=== PATIENT | female | born 1980 | race Caucasian/White ===

== ENCOUNTER 2016-12-16 21:37 | Emergency (ER) | payer MEDICARE ==
[~2016-12-16] VITALS: Ht 167.6 cm; Wt 85.0 kg
[2016-12-16 21:56] VITALS: BP 116/74; PULSE 76; RESP 17; TEMP 98; O2SAT 98
[2016-12-16 22:13] VITALS: BP_SYST 106; BP_SYST 116; BP_DIAS 70; BP_DIAS 71; PULSE 76; RESP 18
[2016-12-16 22:24] LABS: AUTOMATED NEUTROPHIL # 3.8 TH/MM3 (1.8-7.7); BASOPHIL # 0.2 TH/MM3 (0-0.2); BASOPHIL % 2.3 % (0.0-2.0); EOSINOPHIL # 0.5 TH/MM3 (0-0.4); EOSINOPHIL % 6.7 % (0.0-4.0); HEMATOCRIT 44.5 % (35.0-46.0); HEMO FLAGS DIFF FINAL; LYMPH % 33.3 % (9.0-44.0); LYMPHOCYTE # 2.5 TH/MM3 (1.0-4.8); MEAN CELL VOLUME 98.5 FL (80.0-100.0); MEAN CORPUSCULAR HEMOGLOBIN 33.1 PG (27.0-34.0); MEAN CORPUSCULAR HGB CONC 33.6 % (32.0-36.0); MONO % 6.6 % (0.0-8.0); NEUT % 51.1 % (16.0-70.0); PLATELET COUNT 214 TH/MM3 (150-450); RED BLOOD COUNT 4.52 MIL/MM3 (4.00-5.30); RED CELL DISTRIBUTION WIDTH 12.2 % (11.6-17.2); WHITE BLOOD COUNT 7.5 TH/MM3 (4.0-11.0)
--- NOTE | 2016-12-16 22:26 | PD ---
HPI Chief Complaint: Chest Pain Time Seen by Provider: 21:59 Travel History International Travel<30 days: No Contact w/Intl Traveler<30days: No Traveled to known affect area: No History of Present Illness HPI pATIENT IS A 36-YEAR-OLD FEMALE WITH A HISTORY OF hiv on antiretroviral therapy last CD4 count was 400 last viral load was undetectable presents emergency department with nonspecific chest pain without radiation and an episode of dizziness. Patient states this happened earlier this evening and is now nearly resolved but she is left with some mild headache. She does have a history of endocarditis in 2013. She denies any fevers denies any shortness of breath bowel pain nausea or vomiting. Patient states symptoms were fairly alarming in severity but now feels a lot better. She is happy and content at this time. Denies rash denies PFSH Past Medical History Cardiovascular Problems: Yes Cerebrovascular Accident: Yes ?: Not LMP: "at the begining of November" Past Surgical History Narrative Surgical Tonsillectomy Family History Narrative Family History Noncontributory Social History Alcohol Use: No Tobacco Use: No Substance Use: No Allergies-Medications (Allergen,Severity, Reaction): Coded Allergies: Bactrim (Verified Allergy, Severe, Rash, 12/16/16) Imodium (Verified Allergy, Severe, Anaphylaxis, 12/16/16) Reported Meds & Prescriptions Reported Meds & Active Scripts Active Reported Fluticasone Nasal [place] 50 Mcg/Act Naspr 50 Mcg EACH NARE BID 50 mcg/spray Escitalopram (Escitalopram Oxalate) 10 Mg Tab 10 Mg PO DAILY Alprazolam 0.5 Mg Tab 0.5 Mg PO BID PRN Montelukast (Montelukast Sodium) 5 Mg Chew 5 Mg CHEW HS Tivicay (Dolutegravir Sodium) 50 Mg Tab 50 Mg PO DAILY Descovy (Emtricitabine-Tenofovir Alafenamide) 200-25 mg Tab 1 Tab PO DAILY Vitamin B-12 (Cyanocobalamin) 500 Mcg Tab 1,000 Mcg PO DAILY Vitamin D (Cholecalciferol) 1,000 Unit Tab 1,000 Units PO DAILY Dicyclomine (Dicyclomine HCl) 10 Mg Cap 10 Mg PO QID Oyster Shell Calcium 500/200 (Calcium Carbonate-Vitamin D) 500-200 Mg-Unit Tab 1 Tab PO TID Carvedilol 25 Mg Tab 25 Mg PO BID Magnesium Oxide 500 Mg Tab 500 Mg PO BID Physical Exam Narrative GENERAL: Developed well-nourished, comfortable appearance in no obvious distress. SKIN: No rash no wound no splitter hemorrhages no Osler nodes. HEAD: Atraumatic. Normocephalic. EYES: Pupils equal and round. No scleral icterus. No injection or drainage. ENT: No nasal bleeding or discharge. Mucous membranes pink and moist. NECK: Trachea midline. No JVD. CARDIOVASCULAR: Regular rate and rhythm. No murmur appreciated. 2+ bilateral equal pulses in all 4 extremity's. RESPIRATORY: No accessory muscle use. Clear to auscultation. Breath sounds equal bilaterally. GASTROINTESTINAL: Abdomen soft, non-tender, nondistended. Hepatic and splenic margins not palpable. MUSCULOSKELETAL: No obvious deformities. No clubbing. No cyanosis. No edema. NEUROLOGICAL: Awake and alert. No obvious cranial nerve deficits. Motor grossly within normal limits. Normal speech. PSYCHIATRIC: Appropriate mood and affect; insight and judgment normal. Polite and respectful, appears to be in high spirits. Data Data Last Documented VS Vital Signs Date Time Temp Pulse Resp B/P Pulse Ox O2 Delivery O2 Flow Rate FiO2 12/16/16 22:13 Room Air 12/16/16 22:13 76 18 116/71 106/70 12/16/16 21:56 98.0 98 Orders Ckmb (Isoenzyme) Profile (12/16/16 22:08) Complete Blood Count With Diff (12/16/16 22:08) Comprehensive Metabolic Panel (12/16/16 22:08) Magnesium (Mg) (12/16/16 22:08) Prothrombin Time / Inr (Pt) (12/16/16 22:08) Act Partial Throm Time (Ptt) (12/16/16 22:08) Troponin I (12/16/16 22:08) Ecg Monitoring (12/16/16 22:08) Bilateral Bp Monitoring (12/16/16 22:08) Iv Access Insert/Monitor (12/16/16 22:08) Oximetry (12/16/16 22:08) Oxygen Administration (12/16/16 22:08) Chest, Pa & Lat (12/16/16 22:08) Labs Laboratory Tests Test 12/16/16 22:10 White Blood Count 7.5 TH/MM3 Red Blood Count 4.52 MIL/MM3 Hemoglobin 14.9 GM/DL Hematocrit 44.5 % Mean Corpuscular Volume 98.5 FL Mean Corpuscular Hemoglobin 33.1 PG Mean Corpuscular Hemoglobin 33.6 % Concent Red Cell Distribution Width 12.2 % Platelet Count 214 TH/MM3 Mean Platelet Volume 10.1 FL Neutrophils (%) (Auto) 51.1 % Lymphocytes (%) (Auto) 33.3 % Monocytes (%) (Auto) 6.6 % Eosinophils (%) (Auto) 6.7 % Basophils (%) (Auto) 2.3 % Neutrophils # (Auto) 3.8 TH/MM3 Lymphocytes # (Auto) 2.5 TH/MM3 Monocytes # (Auto) 0.5 TH/MM3 Eosinophils # (Auto) 0.5 TH/MM3 Basophils # (Auto) 0.2 TH/MM3 CBC Comment DIFF FINAL Differential Comment Prothrombin Time 9.5 SEC Prothromb Time International 0.9 RATIO Ratio Activated Partial 27.1 SEC Thromboplast Time Sodium Level 139 MEQ/L Potassium Level 3.8 MEQ/L Chloride Level 104 MEQ/L Carbon Dioxide Level 27.6 MEQ/L Anion Gap 7 MEQ/L Blood Urea Nitrogen 19 MG/DL Creatinine 1.60 MG/DL Estimat Glomerular Filtration 36 ML/MIN Rate Random Glucose 93 MG/DL Calcium Level 8.3 MG/DL Magnesium Level 2.3 MG/DL Total Bilirubin 0.2 MG/DL Aspartate Amino Transf 20 U/L (AST/SGOT) Alanine Aminotransferase 38 U/L (ALT/SGPT) Alkaline Phosphatase 144 U/L Total Creatine Kinase 71 U/L Troponin I LESS THAN 0.02 NG/ML Total Protein 7.7 GM/DL Albumin 3.4 GM/DL [facility] Medical Decision Making Medical Screen Exam Complete: Yes Emergency Medical Condition: Yes Interpretation(s) EKG shows normal sinus rhythm with normal axis normal R-wave progression. No concerning ST-T changes. Intervals within normal limits. This normal EKG. Differential Diagnosis ACS unlikely, NE likely, pericarditis unlikely, vasovagal near-syncope, endocarditis seems very unlikely. Narrative Course Patient was roomed in the emergency department, she does not have any physical exam findings to suggest endocarditis at this time, no heart murmur no fever no splinter hemorrhages no Osler nodes. She appears well she's been laughing and joking with her family in the room. Her initial workup clearing EKG chest x- ray troponin and basic labs are normal. I discussed with the patient the differential diagnosis does include vasovagal reaction. Unable to determine with any accuracy of this is the reason why she had her symptoms tonight however she does feel well. I recommend that she follow up with her primary care physician and discussed return to ED criteria. She stable for discharge at this time. Diagnosis Primary Impression: Chest pain with low risk of acute coronary syndrome Additional Instructions: Recommend calling her primary care physician this week for follow-up appointment. Disposition: 01 DISCHARGE HOME Condition: Stable Domingo Herrera MD December 16, 2016 22:26
[2016-12-16 22:32] LABS: CHLORIDE 104 MEQ/L (98-107); POTASSIUM 3.8 MEQ/L (3.5-5.1); SODIUM (NA) 139 MEQ/L (136-145)
[2016-12-16 22:37] LABS: ANION GAP 7 MEQ/L (5-15); BICARBONATE 27.6 MEQ/L (21.0-32.0); BLOOD UREA NITROGEN 19 MG/DL (7-18); MAGNESIUM 2.3 MG/DL (1.5-2.5)
[2016-12-16 22:40] LABS: ALT (GPT) 38 U/L (10-53); AST (GOT) 20 U/L (15-37); GLOMERULAR FILTRATION RATE 36 ML/MIN (>89)
[2016-12-16 22:42] LABS: TOTAL BILIRUBIN ADULT 0.2 MG/DL (0.2-1.0)
[2016-12-16 22:43] LABS: ALKALINE PHOSPHATASE 144 U/L (45-117)
--- NOTE | 2016-12-16 22:49 | RADHPO ---
EXAM DATE/TIME: 12/16/2016 22:26 [place] COMPARISON: No previous studies available for comparison. INDICATIONS : Weakness. Chest discomfort. MEDICAL HISTORY : None. SURGICAL HISTORY : None. ENCOUNTER: Initial ACUITY: 1 day PAIN SCORE: 5/10 LOCATION: Bilateral chest FINDINGS: PA and lateral views of the chest demonstrate the lungs to be symmetrically aerated without evidence of mass, infiltrate or effusion. The cardiomediastinal contours are unremarkable. Osseous structure s are intact. CONCLUSION: No acute disease. Everardo Beach MD FACR on December 16, 2016 at 22:47 Board Certified Radiologist. This report was verified electronically.
[2016-12-16] MEDS ORDERED: MONT5CHW5 CHEW (22:56)
[2016-12-16] MEDS ORDERED: ESCI10TA PO (22:56)
[2016-12-16] MEDS ORDERED: FLUT50SP EACH NARE (22:56)
[2016-12-16] MEDS ORDERED: CARV25TA PO (22:56)
[2016-12-16] MEDS ORDERED: [UNRECOGNIZED DRUG - CODE] PO (22:56)
[2016-12-16] MEDS ORDERED: DOLU1TAB PO (22:56)
[2016-12-16] MEDS ORDERED: EMTR1TAB4 PO (22:56)
[2016-12-16] MEDS ORDERED: MAGN500T2 PO (22:56)
[2016-12-16] MEDS ORDERED: VITA100064 PO (22:56)
[2016-12-16] MEDS ORDERED: VITA500T4 PO (22:56)
[2016-12-16] MEDS ORDERED: DICY10CA12 PO (22:56)
[2016-12-16] MEDS ORDERED: ALPR0.5T3 PO (22:56)
[2016-12-16 22:57] LABS: APTT (PATIENT) 27.1 SEC (24.3-30.1); INTERNATIONAL NORMALIZED RATIO 0.9 RATIO; PROTHROMBIN TIME - PATIENT 9.5 SEC (9.8-11.6)
[2016-12-16 23:24] LABS: CREATINE KINASE 71 U/L (26-192)
--- NOTE | 2016-12-17 15:56 | EKG ---
Date Performed: 12/16/2016 Time Performed: 21:45:16 PTAGE: 36 years EKG: Sinus rhythm Normal ECG NO PREVIOUS TRACING DOCTOR: Mauro Gore Interpretating Date/Time 12/17/2016 15:55:30
== END 2016-12-16 23:57 | disposition home or self-care (01) ==
LOC: PHED 21:37
DX: R07.9 Chest pain, unspecified (principal); Z86.73 Personal history of transient ischemic attack (TIA), and cerebral infarction without residual deficits; Z87.898 Personal history of other specified conditions; B20 Human immunodeficiency virus [HIV] disease
CPT/HCPCS: 71020; 80053; 82550; 83735; 84484; 85025; 85610; 85730; 93005; 99284

== ENCOUNTER 2017-06-28 20:12 | Emergency (ER) | payer MEDICARE, OTHER ==
[~2017-06-28] VITALS: Ht 167.6 cm; Wt 80.0 kg
[~2017-06-28 20:12] MED LIST: ALPR0.5T3 PO; CARV25TA PO; DICY10CA12 PO; DOLU1TAB PO; EMTR1TAB4 PO; ESCI10TA PO; FLUT50SP EACH NARE; MAGN500T2 PO; MONT5CHW5 CHEW; VITA100064 PO; VITA500T4 PO; [UNRECOGNIZED DRUG - CODE] PO
[2017-06-28 20:43] VITALS: BP 122/75; PULSE 88; RESP 17; TEMP 98.1; O2SAT 97
[2017-06-28 22:29] LABS: AUTOMATED NEUTROPHIL # 4.4 TH/MM3 (1.8-7.7); BASOPHIL % 0.5 % (0.0-2.0); EOSINOPHIL # 0.1 TH/MM3 (0-0.4); EOSINOPHIL % 1.7 % (0.0-4.0); HEMATOCRIT 42.7 % (35.0-46.0); HEMO FLAGS DIFF FINAL; LYMPH % 25.7 % (9.0-44.0); LYMPHOCYTE # 1.8 TH/MM3 (1.0-4.8); MEAN CELL VOLUME 99.7 FL (80.0-100.0); MEAN CORPUSCULAR HEMOGLOBIN 33.8 PG (27.0-34.0); MEAN CORPUSCULAR HGB CONC 33.9 % (32.0-36.0); MONO % 7.1 % (0.0-8.0); PLATELET COUNT 202 TH/MM3 (150-450); RED BLOOD COUNT 4.29 MIL/MM3 (4.00-5.30); RED CELL DISTRIBUTION WIDTH 12.9 % (11.6-17.2); WHITE BLOOD COUNT 6.8 TH/MM3 (4.0-11.0)
[2017-06-28 22:44] LABS: ANION GAP 8 MEQ/L (5-15); AST (GOT) 17 U/L (15-37); BICARBONATE 25.8 MEQ/L (21.0-32.0); BLOOD UREA NITROGEN 26 MG/DL (7-18); CHLORIDE 99 MEQ/L (98-107); GLOMERULAR FILTRATION RATE 35 ML/MIN (>89); POTASSIUM 3.7 MEQ/L (3.5-5.1); SODIUM (NA) 133 MEQ/L (136-145)
[2017-06-28 22:45] LABS: ALT (GPT) 33 U/L (10-53)
[2017-06-28 22:47] LABS: ACETAMINOPHEN 4.3 MCG/ML (10.0-30.0); ALCOHOL LESS THAN 3 MG/DL (0-5); ALKALINE PHOSPHATASE 116 U/L (45-117); TOTAL BILIRUBIN ADULT 0.3 MG/DL (0.2-1.0)
[2017-06-28] MEDS ORDERED: HYDR-3583 PO (23:26)
--- NOTE | 2017-06-28 23:32 | PD ---
HPI Chief Complaint: Psychiatric Symptoms Time Seen by Provider: 23:11 Travel History International Travel<30 days: No Contact w/Intl Traveler<30days: No Traveled to known affect area: No History of Present Illness HPI 36yo F with PMH of HIV with CD 4 count 457, peripheral neuropathy, CKD stage III presents to the ED under Patel Act for suicidal ideations. Said she just has these thoughts coming in. Denies any fever, chest pain, sob, n/v, abdominal pain, focal weakness or numbness. PFSH Past Medical History ADHD: Yes Anxiety: Yes Cardiomyopathy: Yes (endocarditis) Cardiovascular Problems: Yes (ENDOCARDITIS, NEUTROPENIA) Cerebrovascular Accident: Yes ("brain bleeding") Developmental Delay: Yes Headaches: Yes Immune Disorder: Yes (HIV AIDS) Musculoskeletal: Yes (OSTEOMYELITIS, ) Neurologic: Yes (INTRACRANIAL HEMORRHAGE) Pneumonia: Yes (GBS) Renal Failure: Yes (ACUTE KIDNEY INJURY) ?: Not Past Surgical History Abdominal Surgery: Yes (c-sect) Section: Yes Tonsillectomy: Yes (t and a) Social History Alcohol Use: No Tobacco Use: Yes Substance Use: No Allergies-Medications (Allergen,Severity, Reaction): Coded Allergies: loperamide (Unverified Allergy, Severe, Anaphylaxis, 06/28/17) sulfamethoxazole (Unverified Allergy, Severe, Rash, 06/28/17) trimethoprim (Unverified Allergy, Severe, Rash, 06/28/17) Reported Meds & Prescriptions Reported Meds & Active Scripts Active Reported Hydrocodone-Acetaminophen 10-325 mg Tab 1 Tab PO Q6H PRN Fluticasone Nasal [place] 50 Mcg/Act Naspr 50 Mcg EACH NARE BID 50 mcg/spray Escitalopram (Escitalopram Oxalate) 10 Mg Tab 10 Mg PO DAILY Alprazolam 0.5 Mg Tab 0.5 Mg PO BID PRN Montelukast (Montelukast Sodium) 5 Mg Chew 5 Mg CHEW HS Tivicay (Dolutegravir Sodium) 50 Mg Tab 50 Mg PO DAILY Descovy (Emtricitabine-Tenofovir Alafenamide) 200-25 mg Tab 1 Tab PO DAILY Vitamin B-12 (Cyanocobalamin) 500 Mcg Tab 1,000 Mcg PO DAILY Vitamin D3 (Cholecalciferol) 1,000 Unit Tab 1,000 Units PO DAILY Dicyclomine (Dicyclomine HCl) 10 Mg Cap 10 Mg PO QID Oyster Shell Calcium 500/200 (Calcium Carbonate-Vitamin D) 500-200 Mg-Unit Tab 1 Tab PO TID Carvedilol 25 Mg Tab 25 Mg PO BID Magnesium Oxide 500 Mg Tab 500 Mg PO BID Review of Systems Except as stated in HPI: all other systems reviewed are Neg Physical Exam Narrative GENERAL: 36yo F not in distress. SKIN: Focused skin assessment warm/dry. HEAD: Atraumatic. Normocephalic. EYES: Pupils equal and round. No scleral icterus. No injection or drainage. ENT: No nasal bleeding or discharge. Mucous membranes pink and moist. NECK: Trachea midline. No JVD. CARDIOVASCULAR: Regular rate and rhythm. No murmur appreciated. RESPIRATORY: No accessory muscle use. Clear to auscultation. Breath sounds equal bilaterally. GASTROINTESTINAL: Abdomen soft, non-tender, nondistended. MUSCULOSKELETAL: No obvious deformities. No clubbing. No cyanosis. No edema. NEUROLOGICAL: Awake and alert. No obvious cranial nerve deficits. Motor grossly within normal limits. Normal speech. Data Data Last Documented VS Vital Signs Date Time Temp Pulse Resp B/P (MAP) Pulse Ox O2 Delivery O2 Flow Rate FiO2 06/28/17 20:43 98.1 88 17 122/75 (91) 97 Orders Orders Complete Blood Count With Diff (06/28/17 21:31) Comprehensive Metabolic Panel (06/28/17 21:31) Ed Urine Pregnancytest Poc (06/28/17 21:31) Psych Screen (06/28/17 21:31) Drug Screen, Random Urine (06/28/17 21:31) Alcohol (Ethanol) (06/28/17 21:31) Salicylates (Aspirin) (06/28/17 21:31) Tylenol (Acetaminophen) (06/28/17 21:31) Labs Laboratory Tests Test 06/28/17 21:50 06/28/17 22:30 White Blood Count 6.8 TH/MM3 Red Blood Count 4.29 MIL/MM3 Hemoglobin 14.5 GM/DL Hematocrit 42.7 % Mean Corpuscular Volume 99.7 FL Mean Corpuscular Hemoglobin 33.8 PG Mean Corpuscular Hemoglobin Concent 33.9 % Red Cell Distribution Width 12.9 % Platelet Count 202 TH/MM3 Mean Platelet Volume 9.5 FL Neutrophils (%) (Auto) 65.0 % Lymphocytes (%) (Auto) 25.7 % Monocytes (%) (Auto) 7.1 % Eosinophils (%) (Auto) 1.7 % Basophils (%) (Auto) 0.5 % Neutrophils # (Auto) 4.4 TH/MM3 Lymphocytes # (Auto) 1.8 TH/MM3 Monocytes # (Auto) 0.5 TH/MM3 Eosinophils # (Auto) 0.1 TH/MM3 Basophils # (Auto) 0.0 TH/MM3 CBC Comment DIFF FINAL Differential Comment Total Protein 7.8 GM/DL Alkaline Phosphatase 116 U/L Alanine Aminotransferase (ALT/SGPT) 33 U/L Total Bilirubin 0.3 MG/DL Anion Gap 8 MEQ/L Estimat Glomerular Filtration Rate 35 ML/MIN Salicylates Level LESS THAN 1.7 MG/DL Acetaminophen Level 4.3 MCG/ML Ethyl Alcohol Level LESS THAN 3 MG/DL Urine Opiates Screen POS Urine Barbiturates Screen NEG Urine Amphetamines Screen NEG Urine Benzodiazepines Screen POS Urine Cocaine Screen NEG Urine Cannabinoids Screen NEG MDM Medical Decision Making Medical Screen Exam Complete: Yes Emergency Medical Condition: Yes Differential Diagnosis Depression vs. suicidal ideation Narrative Course 36yo F under Patel Act for suicidal ideation. Urine negative. Pt has no other complaints. Labs reviewed, no leukocytosis. H/H normal. Chemistry did not go through the results on EMR but I have the hard copy and BUN /creatinine is 26/1.65 which is at baseline. Rest of CMP is normal. Alcohol negative. Acetaminophen and salicylate negative. Utox positive opiates and benzodiazepines. Pt is medically clear for psych evaluation. Diagnosis Primary Impression: Suicidal ideation Julianna Hodge DO Jun 28, 2017 23:32
[2017-06-29 02:00] VITALS: BP 112/68; PULSE 84; RESP 16; TEMP 95; O2SAT 97
[2017-06-29 02:20] VITALS: BP 127/73; PULSE 78; RESP 17; TEMP 98.1; O2SAT 98
[2017-06-29 06:21] VITALS: BP 121/69; PULSE 79; RESP 17; TEMP 97.3; O2SAT 98
[2017-06-29 10:23] VITALS: BP 115/73; PULSE 95; RESP 16; O2SAT 100
--- NOTE | 2017-06-29 14:28 | PD ---
History of Present Illness Chief Complaint: Psychiatric Symptoms Time Seen by Provider: 14:30 Travel History International Travel<30 Days: No Contact w/Intl Traveler<30days: No Known affected area: No Legal Status Legal Status: Jorge Brown Patel Act Signed By: Viviane Patel Act Comment: Signed by [facility] Tarun Mims #[id number] History of Present Illness: 36-year-old female Jorge acted for suicidal ideation. Patient states she does have thoughts of suicide which come and go. However, she denies any suicidal or homicidal ideation, plan or intent at this time. She has no psychotic symptoms and her cognition is intact. She is verbally jose manuel for safety and she is competent to do so. This physician does note the patient is HIV- positive and this was discussed with her. Her toxicology screen is noted to be positive for opiates and benzos PFSH Past Medical History ADHD: Yes Anxiety: Yes Cardiomyopathy: Yes (endocarditis) Cardiovascular Problems: Yes (ENDOCARDITIS, NEUTROPENIA) Cerebrovascular Accident: Yes ("brain bleeding") Developmental Delay: Yes Headaches: Yes Immune Disorder: Yes (HIV AIDS) Musculoskeletal: Yes (OSTEOMYELITIS, ) Neurologic: Yes (INTRACRANIAL HEMORRHAGE) Pneumonia: Yes (GBS) Renal Failure: Yes (ACUTE KIDNEY INJURY) ?: Not Past Surgical History Abdominal Surgery: Yes (c-sect) Section: Yes Tonsillectomy: Yes (t and a) Psychiatric History Psychiatric History Hx Psychiatric Treatment: Stated that she cut herself once many years ago. Stated that Dee has made an appt on Jul 09 with a therapist for her. She does not remember the name. She stated that she sees many doctors for various things. History of Inpatient Treatment: No Guns or firearms in home: No Social History Hx Alcohol Use: No Hx Tobacco Use: Yes Substance Use Type: Benzos (Valium,Xanax) Hx of Substance Use Treatment: No Allergies-Medications (Allergen,Severity, Reaction): Coded Allergies: loperamide (Unverified Allergy, Severe, Anaphylaxis, 06/28/17) sulfamethoxazole (Unverified Allergy, Severe, Rash, 06/28/17) trimethoprim (Unverified Allergy, Severe, Rash, 06/28/17) Reported Meds & Prescriptions Reported Meds & Active Scripts Active Reported Hydrocodone-Acetaminophen 10-325 mg Tab 1 Tab PO Q6H PRN Fluticasone Nasal [place] 50 Mcg/Act Naspr 50 Mcg EACH NARE BID 50 mcg/spray Escitalopram (Escitalopram Oxalate) 10 Mg Tab 10 Mg PO DAILY Alprazolam 0.5 Mg Tab 0.5 Mg PO BID PRN Montelukast (Montelukast Sodium) 5 Mg Chew 5 Mg CHEW HS Tivicay (Dolutegravir Sodium) 50 Mg Tab 50 Mg PO DAILY Descovy (Emtricitabine-Tenofovir Alafenamide) 200-25 mg Tab 1 Tab PO DAILY Vitamin B-12 (Cyanocobalamin) 500 Mcg Tab 1,000 Mcg PO DAILY Vitamin D3 (Cholecalciferol) 1,000 Unit Tab 1,000 Units PO DAILY Dicyclomine (Dicyclomine HCl) 10 Mg Cap 10 Mg PO QID Oyster Shell Calcium 500/200 (Calcium Carbonate-Vitamin D) 500-200 Mg-Unit Tab 1 Tab PO TID Carvedilol 25 Mg Tab 25 Mg PO BID Magnesium Oxide 500 Mg Tab 500 Mg PO BID Review of Systems Except as stated in HPI: all other systems reviewed are Neg Mental Status Examination Appearance: Appropriate Consciousness: Alert Orientation: x4 Motor Activity: Normal gait Speech: Unremarkable Language: Adequate Fund of Knowledge: Adequate Attention and Concentration: Adequate Memory: Unremarkable Mood: Appropriate Affect: Appropriate Thought Process & Associations: Intact Thought Content: Appropriate Hallucination Type: None Delusion Type: None Suicidal Ideation: No Suicidal Plan: No Suicidal Intention: No Homicidal Ideation: No Homicidal Plan: No Homicidal Intention: No Insight: Adequate Judgment: Adequate [facility] Medical Decision Making Medical Record Reviewed: Yes Assessment/Plan Patient interviewed at bedside. Medical record reviewed. Case discussed with nurse Mike. Patient denies any suicidal or homicidal ideation, plan or intent at this time. She admits to a history of intermittent suicidal thinking but this does not make her appropriate under the Patel act at this time. She is verbally jose manuel for safety and she is competent to do so. She is willing to accept and return to treatment on an outpatient basis. Least restrictive alternative applies. She would like to go home and this physician does not feel she requires involuntary inpatient psychiatric hospitalization. Orders Orders Complete Blood Count With Diff (06/28/17 21:31) Comprehensive Metabolic Panel (06/28/17 21:31) Ed Urine Pregnancytest Poc (06/28/17 21:31) Psych Screen (06/28/17 21:31) Drug Screen, Random Urine (06/28/17 21:31) Alcohol (Ethanol) (06/28/17 21:31) Salicylates (Aspirin) (06/28/17 21:31) Tylenol (Acetaminophen) (06/28/17 21:31) Diet Regular Basic (06/29/17 Breakfast) Diet Regular Basic (06/29/17 Lunch) Results Vital Signs Date Time Temp Pulse Resp B/P (MAP) Pulse Ox O2 Delivery O2 Flow Rate FiO2 06/29/17 10:23 95 16 115/73 (87) 100 06/29/17 06:21 97.3 79 17 121/69 (86) 98 Room Air 06/29/17 02:20 98.1 78 17 127/73 (91) 98 Room Air 06/29/17 02:00 95.0 84 16 112/68 (83) 97 Room Air 06/28/17 20:43 98.1 88 17 122/75 (91) 97 Laboratory Tests Test 06/28/17 21:50 06/28/17 22:30 White Blood Count 6.8 Red Blood Count 4.29 Hemoglobin 14.5 Hematocrit 42.7 Mean Corpuscular Volume 99.7 Mean Corpuscular Hemoglobin 33.8 Mean Corpuscular Hemoglobin Concent 33.9 Red Cell Distribution Width 12.9 Platelet Count 202 Mean Platelet Volume 9.5 Neutrophils (%) (Auto) 65.0 Lymphocytes (%) (Auto) 25.7 Monocytes (%) (Auto) 7.1 Eosinophils (%) (Auto) 1.7 Basophils (%) (Auto) 0.5 Neutrophils # (Auto) 4.4 Lymphocytes # (Auto) 1.8 Monocytes # (Auto) 0.5 Eosinophils # (Auto) 0.1 Basophils # (Auto) 0.0 CBC Comment DIFF FINAL Differential Comment Total Protein 7.8 Alkaline Phosphatase 116 Alanine Aminotransferase (ALT/SGPT) 33 Total Bilirubin 0.3 Anion Gap 8 Estimat Glomerular Filtration Rate 35 Salicylates Level LESS THAN 1.7 Acetaminophen Level 4.3 Ethyl Alcohol Level LESS THAN 3 Urine Opiates Screen POS Urine Barbiturates Screen NEG Urine Amphetamines Screen NEG Urine Benzodiazepines Screen POS Urine Cocaine Screen NEG Urine Cannabinoids Screen NEG Diagnosis Primary Impression: Adjustment disorder with depressed mood Mauro Chisholm MD Jun 29, 2017 14:28
--- NOTE | 2017-06-29 15:19 | PD ---
Physical Exam Time Seen by Provider: 15:[address] Chisholm has evaluated the patient, lifted the Patel act and cleared the patient for discharge. Data Data Last Documented VS Vital Signs Date Time Temp Pulse Resp B/P (MAP) Pulse Ox O2 Delivery O2 Flow Rate FiO2 06/29/17 10:23 95 16 115/73 (87) 100 06/29/17 06:21 97.3 Room Air Orders Orders Complete Blood Count With Diff (06/28/17 21:31) Comprehensive Metabolic Panel (06/28/17 21:31) Ed Urine Pregnancytest Poc (06/28/17 21:31) Psych Screen (06/28/17 21:31) Drug Screen, Random Urine (06/28/17 21:31) Alcohol (Ethanol) (06/28/17 21:31) Salicylates (Aspirin) (06/28/17 21:31) Tylenol (Acetaminophen) (06/28/17 21:31) Diet Regular Basic (06/29/17 Breakfast) Diet Regular Basic (06/29/17 Lunch) Ed Discharge Order (06/29/17 15:19) Labs Laboratory Tests Test 06/28/17 21:50 06/28/17 22:30 White Blood Count 6.8 TH/MM3 Red Blood Count 4.29 MIL/MM3 Hemoglobin 14.5 GM/DL Hematocrit 42.7 % Mean Corpuscular Volume 99.7 FL Mean Corpuscular Hemoglobin 33.8 PG Mean Corpuscular Hemoglobin Concent 33.9 % Red Cell Distribution Width 12.9 % Platelet Count 202 TH/MM3 Mean Platelet Volume 9.5 FL Neutrophils (%) (Auto) 65.0 % Lymphocytes (%) (Auto) 25.7 % Monocytes (%) (Auto) 7.1 % Eosinophils (%) (Auto) 1.7 % Basophils (%) (Auto) 0.5 % Neutrophils # (Auto) 4.4 TH/MM3 Lymphocytes # (Auto) 1.8 TH/MM3 Monocytes # (Auto) 0.5 TH/MM3 Eosinophils # (Auto) 0.1 TH/MM3 Basophils # (Auto) 0.0 TH/MM3 CBC Comment DIFF FINAL Differential Comment Total Protein 7.8 GM/DL Alkaline Phosphatase 116 U/L Alanine Aminotransferase (ALT/SGPT) 33 U/L Total Bilirubin 0.3 MG/DL Anion Gap 8 MEQ/L Estimat Glomerular Filtration Rate 35 ML/MIN Salicylates Level LESS THAN 1.7 MG/DL Acetaminophen Level 4.3 MCG/ML Ethyl Alcohol Level LESS THAN 3 MG/DL Urine Opiates Screen POS Urine Barbiturates Screen NEG Urine Amphetamines Screen NEG Urine Benzodiazepines Screen POS Urine Cocaine Screen NEG Urine Cannabinoids Screen NEG MDM Supervised Visit with CATHERINE: No Narrative Course Dr. Chisholm has evaluated the patient, lifted the Patel act and cleared the patient for discharge. Patient contracts safety. Denies suicidal or homicidal ideations. Patient will be provided community resource packet to /BRITTANEY for follow-up. Has friends and family for support. Patient was medically cleared by alternate provider prior to psych screening. Patient has been evaluated by psychiatry and and is now cleared for discharge. Diagnosis Primary Impression: Adjustment disorder with depressed mood Referrals: BRITTANEY (Out patient) [facility] Primary Care Physician Psychiatrist Lisa [facility] Patient Instructions: Depression (ED), General Instructions, Mood Disorders (ED ) Additional Instruction: Contract safety to your self and others Follow-up with psychiatry Follow-up with primary care provider Follow-up with Mike Amanda Return to the emergency department immediately with worsening of symptoms Med/Other Pt SpecificInfo: No Change to Meds, No Meds Exist/No RX given Disposition: 01 DISCHARGE HOME Condition: Stable Nazia Jain Jun 29, 2017 15:19
== END 2017-06-29 16:44 | disposition home or self-care (01) ==
LOC: NEDAMB 20:12 → NEPJ 06-29 16:44
DX: R45.851 Suicidal ideations (principal); B20 Human immunodeficiency virus [HIV] disease; F43.21 Adjustment disorder with depressed mood; N18.3 Chronic kidney disease, stage 3 (moderate); Z72.0 Tobacco use; Z88.2 Allergy status to sulfonamides; Z79.899 Other long term (current) drug therapy
CPT/HCPCS: 80053; 80307; 84703; 85025; 99284; 99285